=== PATIENT | female | born 1955 | race Caucasian/White ===

== ENCOUNTER 2020-03-27 19:40 | Inpatient (IN) | payer MEDICARE ==
[~2020-03-27] VITALS: Ht 170.2 cm; Wt 73.3 kg
--- NOTE | 2020-03-27 20:15 | NUR ---
PT BIBSELF LLQ ABD PAIN X 1 WEEK. PAIN WORSE TODAY, HX DIVERTICULITIS. PT DENIES ANY NAUSEA/VOMITING. PT AAOX4, VSS, RESPIRATIONS EVEN AND UNLABORED ON RA W/ AND NOTED. PT CONNETED TO THE MONITOR AND POX
[2020-03-27] MEDS ORDERED: ONDANSETRON HCL/PF 4 MG/2 ML VIAL IVP ONE (20:30)
[2020-03-27] MEDS ORDERED: IV NS 0.9% 1,000 ML BAG IV ONE (20:30)
[2020-03-27] MEDS ORDERED: HYDROMORPHONE INJ 2 MG/ML DISP.SYRIN IV ONE (20:30)
[2020-03-27] MEDS ORDERED: ONDANSETRON HCL/PF 4 MG/2 ML VIAL ONE (20:38)
[2020-03-27] MEDS ORDERED: HYDROMORPHONE 1 MG/1 ML DISP.SYRIN ONE (20:38)
--- NOTE | 2020-03-27 20:40 | NUR ---
BLOOD COLLECTED AND SENT TO LAB
--- NOTE | 2020-03-27 20:45 | NUR ---
PER PT, SHE WILL TAKE DILAUDID 1 MD LATER. 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
[2020-03-27 20:52] LABS: BASOPHILS # (AUTO) 0.1 /CMM (0.0-0.2); BASOPHILS % (AUTO) 1.1 % (0.0-2.0); EOSINOPHILS % (AUTO) 2.1 % (0.0-6.0); HEMATOCRIT 41 % (33-45); HEMOGLOBIN 13.6 g/dL (11.5-14.8); LYMPHOCYTES # (AUTO) 1.9 /CMM (0.8-4.8); LYMPHOCYTES % (AUTO) 31.7 % (20.0-44.0); MEAN CORPUSCULAR HGB CONC 33 g/dl (31.0-36.0); MEAN CORPUSCULAR VOLUME 90 fL (82-100); MONOCYTES # (AUTO) 0.5 /CMM (0.1-1.30); MONOCYTES % (AUTO) 8.4 % (2.0-12.0); NEUTROPHILS # (AUTO) 3.4 /CMM (1.8-8.9); NEUTROPHILS % (AUTO) 56.7 % (43.0-81.0); PLATELET COUNT (AUTO) 250 /CMM (150-450); RED BLOOD CELL COUNT(AUTO) 4.57 MIL/uL (4.0-5.2); WHITE BLOOD COUNT (AUTO) 6.1 K/uL (4.3-11.0)
[2020-03-27 21:04] LABS: CALCIUM, SERUM 9.4 mg/dL (8.5-10.1); CREATININE 1.1 mg/dL (0.6-1.3); POTASSIUM 3.5 mmol/L (3.5-5.1)
[2020-03-27 21:11] LABS: ALBUMIN 3.9 g/dL (3.4-5.0); BILIRUBIN,DIRECT 0.1 mg/dL (0.0-0.2); BILIRUBIN,TOTAL 0.2 mg/dL (0.2-1.0); TOTAL PROTEIN, SERUM 8.3 g/dL (6.4-8.2)
--- NOTE | 2020-03-27 21:29 | NUR ---
XRAY AT BEDSIDE
--- NOTE | 2020-03-27 21:31 | NUR ---
PT UNABLE TO PROVIDE URINE AT THIS TIME MD ALARCON
--- NOTE | 2020-03-27 21:35 | NUR ---
PT TAKEN TO RADIOLOGY FOR CT
[2020-03-27] MEDS ORDERED: CT SWABBABLE VALVE TRANS SET 1 EA INFUS.SET MC ONE (21:36)
[2020-03-27] MEDS ORDERED: IOHEXOL-300 100 ML VIAL IV ONE (21:36)
[2020-03-27] MEDS ORDERED: IV NS 0.9% 250 ML IV ONE (21:36)
--- NOTE | 2020-03-27 21:49 | NUR ---
PT BACK FROM RADIOLOGY
--- NOTE | 2020-03-27 22:06 | NUR ---
CALLED LAB FOR COVID ANTIGEN SWAB
--- NOTE | 2020-03-27 22:20 | NUR ---
COVID SWAB SENT TO LAB
[2020-03-27] MEDS ORDERED: PIPERACILLIN /TAZOBACTAM 3.375 G in IV D5W 50 ML IV ONE (23:00)
--- NOTE | 2020-03-27 23:03 | NUR ---
DR VENTURA AT BEDSIDE
[2020-03-27] MEDS ORDERED: PIPERACILLIN /TAZOBACTAM 3.375 G VIAL IV ONE (23:10)
[2020-03-27] MEDS ORDERED: HYDROCODONE/APAP 5/325MG TABLET PO PRN (23:30)
[2020-03-27] MEDS ORDERED: ONDANSETRON HCL/PF 4 MG/2 ML VIAL IVP PRN (23:30)
[2020-03-27] MEDS ORDERED: ZOLPIDEM TARTRATE 5 MG TABLET PO PRN (23:30)
[2020-03-27] MEDS ORDERED: MAG HYDROX/AL HYDROX/SIMETH 30 ML UDC PO PRN (23:30)
[2020-03-27] MEDS ORDERED: ACETAMINOPHEN 325 MG TABLET PO PRN (23:30)
[2020-03-27] MEDS ORDERED: MAGNESIUM HYDROXIDE 30 ML UDC PO PRN (23:30)
[2020-03-27] MEDS ORDERED: Z GUARD REMEDY 2 OZ OINT TP PRN (23:30)
--- NOTE | 2020-03-27 23:50 | NUR ---
COVID NEGATIVE PER LAB
--- NOTE | 2020-03-27 23:52 | NUR ---
M/S 313-2
--- NOTE | 2020-03-28 00:08 | NUR ---
ATTEMPTED TO GIVE REPORT. NURSE NOT AVAILABLE
--- NOTE | 2020-03-28 00:25 | NUR ---
REPORT GIVEN TO MARCELO SALINAS FOR ROSS
[2020-03-28 00:32] VITALS: BP 135/73
[2020-03-28 00:38] LABS: APPEARANCE,URINE Clear (CLEAR); BILIRUBIN,URINE Negative (NEGATIVE); BLOOD, URINE Trace-intact Ery/uL (NEGATIVE); COLOR,URINE Yellow (YELLOW); KETONES,URINE Negative (NEGATIVE); LEUKOCYTE ESTERASE ,URINE Negative (NEGATIVE); NITRITE, URINE Negative (NEGATIVE); PH,URINE 6.5 (5.0-8.0); PROTEIN,URINE Negative (NEGATIVE); UGLUCOSE Negative (NEGATIVE); UROBILINOGEN,URINE 0.2 EU/dL (0.2)
[2020-03-28 00:45] VITALS: BP 135/73
--- NOTE | 2020-03-28 01:00 | NUR ---
rn notes/refusal for vaccine: offered flu vaccine and pna vaccine to pt, pt refused stated she doesnt want to receive any vaccine as she is scared, believed it will cause flu, education provided to pt regarding risk benefits, pt still refused.
[2020-03-28] MEDS: IV 1/2NS 1000 ML 1,000 ML IV PRN ×2 (01:09→14:32)
--- NOTE | 2020-03-28 01:22 | NUR ---
admission notes: received report from jarek loaiza. pt brought to the unit via wheelchair, arrived at 0035. pt a/o x 4, on ra respirations even and unlabored. iv access patent and flushing well, on hl. transferred to bed, kept comfortable. vs taken and recorded. skin assessment performed. pt decided to wear own street clothes. inventory of belongings completed by soham gore. 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 answer all admission questionnaire. pt full code. pmhx of hypothyroidism and diverticulitis. pt c/o llq pain described as dull pain 08/26, offered pain medication but pt refused stated she would like to know how the pain will go, if the pain will increase or not, primary reason why she doesnt want any pain meds. pt connected to ivf 1/2 ns at 75ml/hr. discussed plan of care to pt, pt agree and understand. refused scd despite providing education, stated she can ambulate. pt is continent, ambulatory, independent with adls. oriented pt to use of call light system, hourly rounding and hospital policy. safety precautions for fall initiated, call light in reach, will monitor pt accordingly.
--- NOTE | 2020-03-28 01:32 | NUR ---
rn notes: unable to input/enter pt's home med list as this is locked by dr rodriguez. unable to view/access. pt takes metoprolol 25mg tab po bid and synthroid 50 mcg po daily.
[2020-03-28 03:49] LABS: BACTERIA,URINE None seen /HPF (None Seen); RBC,URINE 0-2 /HPF (0-2); SQUAMOUS EPITHELIAL CELL,UR Few /HPF (None Seen)
[2020-03-28 03:50] LABS: MUCUS,URINE Few /LPF (None Seen); URINE AMORPHOUS URATE Few /HPF (None Seen)
[2020-03-28] MEDS ORDERED: metoprolol PO (03:55)
[2020-03-28] MEDS ORDERED: LEVO25TA7 PO (03:55)
[2020-03-28] MEDS ORDERED: PIPERACILLIN /TAZOBACTAM 3.375 G VIAL IV ONE (05:32)
[2020-03-28] MEDS ORDERED: ZOSYN IVPB 3.375 G in IV D5W 50ml IV SCH (06:00)
--- NOTE | 2020-03-28 06:50 | NUR ---
End of shift report: Pt remains on ra respirations even and unlabored, iv access remains patent and flushing well, infusing with ns at 75ml/hr. no s/s of iv infiltration noted. Plan of care: gi and surgery consult. Iv hydration. Safety precautions for fall remains engaged, call light in reach, will endorse to day rn for ernst.
--- NOTE | 2020-03-28 07:30 | NUR ---
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 A/O X4 VS WITHIN NORMAL RANGE. DENIES ANY PAIN AT THIS TIME. PAIN SCORE 3/10. IV INFUSING VIA RIGHT AC 1/2 NS AT 75ML/HR NO SIGN OF INFILTRATION SEEN. CALL LIGHT WITHIN REACH, BED IN LOW SETTING, BRAKES LOCKED, SIDE RAIL X 2 IN UPRIGHT POSITION. WILL CONTINUE TO MONITOR AND ENSURE SAFETY.
[2020-03-28 08:00] VITALS: BP 137/79
[2020-03-28 08:43] LABS: BASOPHILS % (AUTO) 0.9 % (0.0-2.0); EOSINOPHILS % (AUTO) 3.5 % (0.0-6.0); HEMATOCRIT 38 % (33-45); HEMOGLOBIN 12.6 g/dL (11.5-14.8); LYMPHOCYTES # (AUTO) 1.8 /CMM (0.8-4.8); LYMPHOCYTES % (AUTO) 41.5 % (20.0-44.0); MEAN CORPUSCULAR HGB CONC 33 g/dl (31.0-36.0); MEAN CORPUSCULAR VOLUME 89 fL (82-100); MONOCYTES # (AUTO) 0.4 /CMM (0.1-1.30); MONOCYTES % (AUTO) 8.8 % (2.0-12.0); NEUTROPHILS # (AUTO) 1.9 /CMM (1.8-8.9); NEUTROPHILS % (AUTO) 45.3 % (43.0-81.0); PLATELET COUNT (AUTO) 212 /CMM (150-450); RED BLOOD CELL COUNT(AUTO) 4.25 MIL/uL (4.0-5.2); WHITE BLOOD COUNT (AUTO) 4.3 K/uL (4.3-11.0)
[2020-03-28 08:54] LABS: CALCIUM, SERUM 8.5 mg/dL (8.5-10.1); CREATININE 0.9 mg/dL (0.6-1.3); MAGNESIUM 2.1 mg/dL (1.8-2.4); PHOSPHORUS 2.8 mg/dL (2.5-4.9); POTASSIUM 3.6 mmol/L (3.5-5.1)
[2020-03-28] MEDS: LEVOTHYROXINE SODIUM 25 MCG TABLET PO SCH (11:00)
[2020-03-28] MEDS ORDERED: METOPROLOL SUCCINATE 50 MG TAB.SR.24H PO SCH (11:00)
[2020-03-28] MEDS: ENOXAPARIN SODIUM 40 MG/0.4 ML DISP.SYRIN SQ SCH (11:00)
--- NOTE | 2020-03-28 11:02 | NUR ---
-RN SEEN BY DR. VELAZQUEZ PATIENT SEEN AND EXAMINED BY DR. VELAZQUEZ. CONTINUE WITH CURRENT FLUIDS AND ANTIBIOTICS. SURGICAL CONSULT REQUESTED WITH DR. SUAREZ.
--- NOTE | 2020-03-28 11:33 | NUR ---
MS-RN 2D ECHO PATIENT REFUSED 2D ECHO STATED SHE HAD ECHO WITH DR. LEON IN THE OFFICE 3 WEEKS AGO.
[2020-03-28] MEDS: PIPERACILLIN /TAZOBACTAM 3.375 G in IV D5W 50 ML IV SCH ×3 (11:51→23:10)
[2020-03-28 12:08] LABS: THYROID STIMULATING HORMONE 7.248 uIU/mL (0.358-3.74)
--- NOTE | 2020-03-28 14:00 | NUR ---
MS/appliance servicer consult Call received from Dr Adams (Ava), asked for CT adbo result to be forward, will be in to see patient later this afternoon.
--- NOTE | 2020-03-28 14:15 | NUR ---
MS/RN Rounds Patient resting comfortably at this time, appears in no distress.
[2020-03-28 16:00] VITALS: BP 127/67
--- NOTE | 2020-03-28 17:00 | NUR ---
MS/RN S/B Dr Adams Seen by MD - patient given option of medical management or surgical resection. Per MD, will call and follow up what patient wishes to do. If surgery, bowel prep to be ordered.
--- NOTE | 2020-03-28 18:34 | NUR ---
MS/RN End note Patient remains in stable condition. Continues to state that pain level is 2-3/10. IVF and IVAB infusing as ordered. Time allowed for all questions and concerns to be addressed. Will endorse to greenhouse instructor.
[2020-03-28 20:00] VITALS: BP 134/78
--- NOTE | 2020-03-28 20:10 | NUR ---
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 a/o x4. on ra. stated her pain is tolerable 3/10 llq pain, offered pain medication, pt refused. does not want any pain meds. provided with copy of cd/imaging. iv access patent and flushing well, infusing with 1/2 ns at 75ml/hr. pt on iv atb zosyn q6hrs. discussed plan of care to pt. pt agree and understand. pt ambulatory, continent. safety precautions for fall initiated, call light in reach, will monitor accordingly.
[2020-03-29] MEDS: IV 1/2NS 1000 ML 1,000 ML IV PRN (03:24)
[2020-03-29] MEDS: PIPERACILLIN /TAZOBACTAM 3.375 G in IV D5W 50 ML IV SCH (05:01)
--- NOTE | 2020-03-29 06:53 | NUR ---
End of shift report: No prn medication administered as pt refused for any pain medicine. Iv access remains patent and flushing well, infusing with ns at 75ml/hr. awaiting pts decision regarding surgery. Vs remains stable, needs attended. Safety precautions for fall remains engaged, call light in reach, will endorse to day rn for ernst.
[2020-03-29 08:00] VITALS: BP 136/62
[2020-03-29 08:15] VITALS: BP 136/62
[2020-03-29] MEDS: LEVOTHYROXINE SODIUM 25 MCG TABLET PO SCH (08:16)
[2020-03-29] MEDS: ENOXAPARIN SODIUM 40 MG/0.4 ML DISP.SYRIN SQ SCH (08:17)
--- NOTE | 2020-03-29 08:18 | NUR ---
MS/RN S/B Dr Bravo Seen by Dr Bravo - patient to be discharged to home today and follow up with colorectal surgeon. Per patient, already has appointment scheduled for tomorrow. Prescription given for augmentin 875mg X10 days BID.
[2020-03-29 08:20] LABS: BASOPHILS % (AUTO) 0.9 % (0.0-2.0); EOSINOPHILS % (AUTO) 1.5 % (0.0-6.0); HEMATOCRIT 40 % (33-45); HEMOGLOBIN 13.3 g/dL (11.5-14.8); LYMPHOCYTES # (AUTO) 1.2 /CMM (0.8-4.8); LYMPHOCYTES % (AUTO) 25.2 % (20.0-44.0); MEAN CORPUSCULAR HGB CONC 33 g/dl (31.0-36.0); MEAN CORPUSCULAR VOLUME 88 fL (82-100); MONOCYTES # (AUTO) 0.3 /CMM (0.1-1.30); MONOCYTES % (AUTO) 5.8 % (2.0-12.0); NEUTROPHILS # (AUTO) 3.3 /CMM (1.8-8.9); NEUTROPHILS % (AUTO) 66.6 % (43.0-81.0); PLATELET COUNT (AUTO) 228 /CMM (150-450); RED BLOOD CELL COUNT(AUTO) 4.53 MIL/uL (4.0-5.2); WHITE BLOOD COUNT (AUTO) 4.9 K/uL (4.3-11.0)
--- NOTE | 2020-03-29 08:47 | NUR ---
MS/chief warden Patient discharged in stable condition. Escorted to main lobby by RN, all personal belongings reutrned and signed for on belongings list. Heplock removed, pressure dressing applied, name bands removed. Provided with copies of medical record including labs and radiology testing to provide to surgeon at appointment tomorrow. All questions answered, educated as to the importance of getting prescription filled as soon as possible in order to complete entire course of antibiotic, patient stated understanding. Instructed to return to the nearest emergency room if pain returns and is severe in nature or with any fevers. Exit care signed by patient, copy provided.
[2020-03-29 09:03] LABS: CALCIUM, SERUM 9.1 mg/dL (8.5-10.1); CREATININE 0.9 mg/dL (0.6-1.3); POTASSIUM 3.6 mmol/L (3.5-5.1)
== END 2020-03-29 08:30 | disposition home or self-care (01) | DRG 391 ==
LOC: ER 19:50 → MED 23:57
PROVIDERS: ADMIT Nurse Practitioner Acute Care; ATTEND Internal Medicine
DX: K57.20 Diverticulitis of large intestine with perforation and abscess without bleeding (principal); K65.9 Peritonitis, unspecified; E03.9 Hypothyroidism, unspecified; I10 Essential (primary) hypertension; K58.9 Irritable bowel syndrome, unspecified
CPT/HCPCS: 36415; 71045-TC; 80048-TC; 80061-TC; 80076-TC; 81000-TC; 83690-TC; 83735-TC; 84100-TC; 84439-TC; 84443-TC; 85025-TC; 85730-TC; 87081-TC; C9803-CS; G0378; J1170; J1650; J2405; J2543; J3490; J7030; J7050; J7060; Q9967